=== PATIENT | male | born 1965 | race Caucasian/White ===

== ENCOUNTER 2016-09-22 10:45 | Emergency (ER) | payer OTHER ==
[2016-09-22 10:55] VITALS: RESP 18
[2016-09-22] MEDS ORDERED: methylPREDNISolone SOD SUCCI 125 MG/2 ML VIAL IV STA (11:26)
[2016-09-22] MEDS ORDERED: IPRATROPIUM-ALBUTEROL 3 ML NEB INHALATION STA (11:26)
[2016-09-22] MEDS ORDERED: KETOROLAC 30 MG/ML 1 ML VIAL IVP STA (11:28)
--- NOTE | 2016-09-22 11:50 | ED ---
SOB HPI - General Chief Complaint: Shortness of Breath Stated Complaint: left chest congestion Time Seen by Provider: 09/22/16 11:07 Source: patient Mode of arrival: ambulatory Limitations: no limitations - History of Present Illness Initial Comments: This 51-year-old white male presents with a complaint of some shortness of breath as well as some left-sided chest pain. He states that it is been present for approximately 2 months. He shortness of breath is worse with any exertion. He states that if he walks up steps he SHORT of breath. He also has had an increased cough with whitish production. He states that he will get some left-sided chest pain when he coughs or touches his left chest. It is described as a dull achy sensation. He denies any previous similar incidents. He does smoke 1 pack per day tobacco. It is been progressively worsening over the last 2 months. He denies any fevers or chills. He denies any history of asthma, COPD, or emphysema. He does not take any inhalers at home. He denies any leg pain or swelling. He denies any history of PE or DVT. No other complaints or modifying factors. - Related Data Previous Rx's Medication Instructions Recorded Albuterol Sulfate [Proair Hfa] 1 - 2 puff INHALATION Q6HR PRN #1 09/22/16 inhaler Ipratropium-Albuterol Nebulize 3 ml INHALATION Q4H PRN #50 neb 09/22/16 [Duoneb 0.5 mg-3 mg/3 ml Soln] predniSONE 20 mg PO BID #10 tab 09/22/16 Allergies Allergy/AdvReac Type Severity Reaction Status Date / Time Penicillins Allergy Unknown Verified 09/22/16 11:12 Review of Systems ROS Statement: Those systems with pertinent positive or pertinent negative responses have been documented in the HPI. ROS Other: All systems not noted in ROS Statement are negative. Past Medical History Additional Past Medical History / Comment(s): dr History of Any Multi-Drug Resistant Organisms: None Reported Additional Past Surgical History / Comment(s): esphogeal surg from drinking drano at 1 yo Past Psychological History: No Psychological Hx Reported Smoking Status: Current every day smoker Past Alcohol Use History: Daily Past Drug Use History: None Reported General Exam - General Exam Comments Initial Comments: GENERAL: The patient is well nourished and well hydrated. VITAL SIGNS: Heart rate, blood pressure, respiratory rate reviewed as recorded in nurse's notes. EYES: Pupils are round and reactive. Extraocular movements are intact. No conjunctival / lid redness or swelling. ENT: No external evidence of injury, swelling, or ecchymosis. Airway is patent. Throat is clear. NECK: Nontender. No swelling or evidence of injury. No subcutaneous emphysema. Trachea is midline. No thyroid mass. HEART: Regular rate and rhythm. Good peripheral pulses. LUNGS/CHEST: Breath sounds clear and equal bilaterally. No rales, rhonchi, or wheezes. There is some mild tenderness upon palpation of his left chest wall. ABDOMEN: Abdomen soft without tenderness. No palpable masses or organomegaly. No peritoneal signs. No abdominal wall swelling or ecchymosis. EXTREMITIES: No extremity tenderness. Normal muscle tone and function. No thoracolumbar tenderness. NEUROLOGIC: Sensation is grossly intact. Cranial nerve exam reveals face is symmetrical, tongue is midline, speech is clear. SKIN: No abrasions or ecchymosis is noted. No induration or masses noted. PSYCHIATRIC: Alert and oriented. Appropriate behavior and judgment. Limitations: no limitations Course Vital Signs 09/22/16 09/22/16 09/22/16 10:52 13:06 13:11 Temperature 98.3 F Pulse Rate 80 62 68 Respiratory 18 Rate Blood Pressure 127/68 O2 Sat by Pulse 98 Oximetry Medical Decision Making - Medical Decision Making The patient was seen and examined. All diagnostics were reviewed. An IV is established and he received some Solu-Medrol as well as a DuoNeb breathing treatment. An EKG was done which shows a normal sinus rhythm at a rate of 73. There is a incomplete right bundle-branch block with associated ST-T wave changes primarily in V1, V2, and aVL. The LA interval is 134, QRS duration is 106, and QTC intervals 420. The laboratory is unremarkable. The chest x-ray shows advanced COPD changes but no other acute processes. He states that he feels remarkably better after the DuoNeb breathing treatment. It is felt as though he would benefit from a home nebulizer as well as some steroids and albuterol. He is a reproducible chest pain that is only present with coughing. Is felt that this likely is musculoskeletal in nature. It is felt as though he does have an exacerbation of his COPD. There is no signs of infection currently. Is felt that he is stable for discharge home and leaves in no distress. - Lab Data Result diagrams: 09/22/16 12:40 09/22/16 12:40 Lab Results 09/22/16 09/22/16 09/22/16 Range/Units 12:40 12:40 12:40 WBC 5.8 (3.8-10.6) k/uL RBC 4.14 L (4.30-5.90) m/uL Hgb 14.0 (13.0-17.5) gm/dL Hct 41.1 (39.0-53.0) % MCV 99.2 (80.0-100.0) fL MCH 33.8 (25.0-35.0) pg MCHC 34.1 (31.0-37.0) g/dL RDW 13.1 (11.5-15.5) % Plt Count 165 (150-450) k/uL Neutrophils % 57 % Lymphocytes % 27 % Monocytes % 8 % Eosinophils % 4 % Basophils % 1 % Neutrophils # 3.3 (1.3-7.7) k/uL Lymphocytes # 1.6 (1.0-4.8) k/uL Monocytes # 0.5 (0-1.0) k/uL Eosinophils # 0.2 (0-0.7) k/uL Basophils # 0.0 (0-0.2) k/uL PT (9.0-12.0) sec INR (<1.1) APTT (22.0-30.0) sec D-Dimer (<0.60) mg/L FEU Sodium 140 (137-145) mmol/L Potassium 4.2 (3.5-5.1) mmol/L Chloride 106 (98-107) mmol/L Carbon Dioxide 25 (22-30) mmol/L Anion Gap 9 mmol/L BUN 13 (9-20) mg/dL Creatinine 0.95 (0.66-1.25) mg/dL Est GFR (MDRD) Af Amer >60 (>60 ml/min/1.73 sqM) Est GFR (MDRD) Non-Af >60 (>60 ml/min/1.73 sqM) Glucose 95 (74-99) mg/dL Calcium 9.8 (8.4-10.2) mg/dL Total Bilirubin 0.7 (0.2-1.3) mg/dL AST 49 (17-59) U/L ALT 40 (21-72) U/L Alkaline Phosphatase 56 (38-126) U/L Total Creatine Kinase 159 (55-170) U/L CK-MB (CK-2) 1.8 (0.0-2.4) ng/mL CK-MB (CK-2) Rel Index 1.1 Troponin I <0.012 (0.000-0.034) ng/mL Total Protein 7.3 (6.3-8.2) g/dL Albumin 4.4 (3.5-5.0) g/dL 09/22/16 Range/Units 12:40 WBC (3.8-10.6) k/uL RBC (4.30-5.90) m/uL Hgb (13.0-17.5) gm/dL Hct (39.0-53.0) % MCV (80.0-100.0) fL MCH (25.0-35.0) pg MCHC (31.0-37.0) g/dL RDW (11.5-15.5) % Plt Count (150-450) k/uL Neutrophils % % Lymphocytes % % Monocytes % % Eosinophils % % Basophils % % Neutrophils # (1.3-7.7) k/uL Lymphocytes # (1.0-4.8) k/uL Monocytes # (0-1.0) k/uL Eosinophils # (0-0.7) k/uL Basophils # (0-0.2) k/uL PT 9.5 (9.0-12.0) sec INR 0.9 (<1.1) APTT 23.3 (22.0-30.0) sec D-Dimer 0.39 (<0.60) mg/L FEU Sodium (137-145) mmol/L Potassium (3.5-5.1) mmol/L Chloride (98-107) mmol/L Carbon Dioxide (22-30) mmol/L Anion Gap mmol/L BUN (9-20) mg/dL Creatinine (0.66-1.25) mg/dL Est GFR (MDRD) Af Amer (>60 ml/min/1.73 sqM) Est GFR (MDRD) Non-Af (>60 ml/min/1.73 sqM) Glucose (74-99) mg/dL Calcium (8.4-10.2) mg/dL Total Bilirubin (0.2-1.3) mg/dL AST (17-59) U/L ALT (21-72) U/L Alkaline Phosphatase (38-126) U/L Total Creatine Kinase (55-170) U/L CK-MB (CK-2) (0.0-2.4) ng/mL CK-MB (CK-2) Rel Index Troponin I (0.000-0.034) ng/mL Total Protein (6.3-8.2) g/dL Albumin (3.5-5.0) g/dL Disposition Clinical Impression: COPD exacerbation, Musculoskeletal chest pain, Tobacco abuse Disposition: HOME SELF-CARE Condition: Good Instructions: COPD (Chronic Obstructive Pulmonary Disease) (ED), Chest Pain (ED ), How to Stop Smoking (ED) Prescriptions: Albuterol Sulfate [Proair Hfa] 1 - 2 puff INHALATION Q6HR PRN #1 inhaler PRN Reason: Shortness Of Breath Or Wheezing Ipratropium-Albuterol Nebulize [Duoneb 0.5 mg-3 mg/3 ml Soln] 3 ml INHALATION Q4H PRN #50 neb PRN Reason: cough or sob predniSONE 20 mg PO BID #10 tab Referrals: None,Stated [Primary Care Provider] - 1-2 days Margarita Grossman MD [STAFF PHYSICIAN] - 09/29/16 Time of Disposition: 14:18
[2016-09-22 13:03] LABS: Basophils % (A) 1 %; CH 34.1; CHCM 34.6; Eosinophils # (A) 0.2 k/uL (0-0.7); Eosinophils % (A) 4 %; HCT 41.1 % (39.0-53.0); HDW 2.27; Luc # (Auto) 0.18; Luc % (Auto) 3; Lymphocytes # (A) 1.6 k/uL (1.0-4.8); Lymphocytes % (A) 27 %; MCH 33.8 pg (25.0-35.0); MCHC 34.1 g/dL (31.0-37.0); MCV 99.2 fL (80.0-100.0); Mean Platelet Volume 7.5; Monocytes # (A) 0.5 k/uL (0-1.0); Monocytes % (A) 8 %; Neutrophils # (A) 3.3 k/uL (1.3-7.7); Neutrophils % (A) 57 %; RBC 4.14 m/uL (4.30-5.90); RDW 13.1 % (11.5-15.5); WBC 5.8 k/uL (3.8-10.6); WBC (Perox) 5.68
[2016-09-22 13:14] LABS: ALT 40 U/L (21-72); AST 49 U/L (17-59); Alkaline Phosphatase 56 U/L (38-126); Anion Gap 9 mmol/L; Blood Urea Nitrogen 13 mg/dL (9-20); Calcium 9.8 mg/dL (8.4-10.2); Carbon Dioxide 25 mmol/L (22-30); Chloride 106 mmol/L (98-107); Glucose 95 mg/dL (74-99); Non-African American GFR(MDRD) >60 (>60 ml/min/1.73 sqM); Potassium 4.2 mmol/L (3.5-5.1); Sodium 140 mmol/L (137-145); Total Bilirubin 0.7 mg/dL (0.2-1.3); Total Protein 7.3 g/dL (6.3-8.2)
[2016-09-22 13:16] LABS: INR 0.9 (<1.1); Partial Thromboplastin Time 23.3 sec (22.0-30.0); Prothrombin Time 9.5 sec (9.0-12.0)
[2016-09-22 13:34] LABS: Creatine Kinase 159 U/L (55-170)
[2016-09-22 13:46] LABS: Creatine Kinase MB 1.8 ng/mL (0.0-2.4); Troponin I <0.012 ng/mL (0.000-0.034)
--- NOTE | 2016-09-22 13:58 | XR ---
EXAMINATION TYPE: XR chest 2V DATE OF EXAM: 09/22/2016 COMPARISON: NONE HISTORY: Cough, congestion, fever, shortness of breath. TECHNIQUE: Frontal and lateral views of the chest are obtained. FINDINGS: Chronic emphysematous change is present. Biapical scarring is seen. There is no focal air s pace opacity, pleural effusion, or pneumothorax seen. The cardiac silhouette size is within normal l imits. The osseous structures are intact. IMPRESSION: Fairly prominent emphysematous change without suspicious acute pulmonary process.
[2016-09-22 14:54] VITALS: BP 126/77; PULSE 68; TEMP 97.9
== END 2016-09-22 14:53 | disposition home or self-care (01) ==
LOC: EC 10:45
DX: J44.1 Chronic obstructive pulmonary disease with (acute) exacerbation (principal); I45.10 Unspecified right bundle-branch block; F17.200 Nicotine dependence, unspecified, uncomplicated; Z88.0 Allergy status to penicillin
CPT/HCPCS: 36415; 94640; 93005; 85379; 80053; 82550; 82553; 84484; 85025; 85610; 85730; 71020; 99285; 96374; 96375; J2930; J1885

== ENCOUNTER 2020-04-20 16:36 | Emergency (ER) | payer OTHER ==
[2020-04-20 16:44] VITALS: RESP 18
[2020-04-20 17:43] LABS: Basophils # (A) 0.1 k/uL (0-0.2); Basophils % (A) 1 %; Eosinophils # (A) 0.2 k/uL (0-0.7); Eosinophils % (A) 4 %; HGB 15.2 gm/dL (13.0-17.5); Lymphocytes % (A) 34 %; MCH 34.1 pg (25.0-35.0); MCHC 35.4 g/dL (31.0-37.0); MCV 96.5 fL (80.0-100.0); Mean Platelet Volume 7.4; Monocytes # (A) 0.4 k/uL (0-1.0); Monocytes % (A) 7 %; Neutrophils % (A) 51 %; Platelet Count 216 k/uL (150-450); RBC 4.46 m/uL (4.30-5.90); RDW 11.7 % (11.5-15.5); WBC 5.8 k/uL (3.8-10.6)
[2020-04-20 17:54] LABS: ALT 39 U/L (4-49); AST 55 U/L (17-59); African American GFR (CKD) >90 (>60 ml/min/1.73 sqM); Albumin 3.5 g/dL (3.5-5.0); Alkaline Phosphatase 93 U/L (38-126); Anion Gap 4 mmol/L; Blood Urea Nitrogen 12 mg/dL (9-20); Calcium 8.6 mg/dL (8.4-10.2); Carbon Dioxide 24 mmol/L (22-30); Chloride 108 mmol/L (98-107); Glucose 103 mg/dL (74-99); Non-African American GFR(CKD) >90 (>60 ml/min/1.73 sqM); Potassium 4.2 mmol/L (3.5-5.1); Sodium 136 mmol/L (137-145); Total Bilirubin 0.5 mg/dL (0.2-1.3); Total Protein 6.5 g/dL (6.3-8.2)
[2020-04-20 18:01] LABS: Appearance,Urine Clear (Clear); Bilirubin,Urine Negative (Negative); Blood,Urine Negative (Negative); Color,Urine Yellow; Glucose,Urine (UA) Negative (Negative); Ketones,Urine Negative (Negative); Leukocyte Esterase,Urine Negative (Negative); Nitrite,Urine Negative (Negative); Protein,Urine Negative (Negative); Specific Gravity,Urine 1.013 (1.001-1.035); Urobilinogen,Urine <2.0 mg/dL (<2.0)
[2020-04-20 18:08] VITALS: TEMP 98.5
--- NOTE | 2020-04-20 18:22 | ED ---
Abdominal Pain HPI - General Chief Complaint: Abdominal Pain Stated Complaint: Lightheaded Time Seen by Provider: 04/20/20 16:50 Source: patient Mode of arrival: wheelchair Limitations: no limitations - History of Present Illness Initial Comments: Patient is a 55-year-old male, with history of alcohol abuse, presenting to the emergency Department with complaints of burning with defecation for the past 3 days. Patient states he is also having some blood in his stool as well. Patient denies any abdominal pain, no nausea or vomiting, no fever or chills. He denies any chest pain or shortness of breath. He states the burning started about 3 days ago and happens with every bowel movement. He states he normally has loose stools and this is making the burning worse. He denies any rectal bleeding in between bowel movements. He has had a colonoscopy approximately 15 years ago which showed polyps, no other abnormalities. He has no further compl aints at this time. Upon arrival to the ER, his vital signs are stable. - Related Data Previous Rx's Medication Instructions Recorded Hydrocortisone Pr Cream 1 applic RECTAL TID PRN #1 tube 04/20/20 [Proctosol-Hc 2.5%] Allergies Allergy/AdvReac Type Severity Reaction Status Date / Time Penicillins Allergy Unknown Verified 04/20/20 18:22 Childhood Review of Systems ROS Statement: Those systems with pertinent positive or pertinent negative responses have been documented in the HPI. ROS Other: All systems not noted in ROS Statement are negative. Past Medical History Additional Past Medical History / Comment(s): dr History of Any Multi-Drug Resistant Organisms: None Reported Additional Past Surgical History / Comment(s): esphogeal surg from drinking drano at 1 yo Past Psychological History: No Psychological Hx Reported Smoking Status: Current every day smoker Past Alcohol Use History: Daily Past Drug Use History: None Reported General Exam - General Exam Comments Initial Comments: GENERAL: Patient is well-developed and well-nourished. Patient is nontoxic and in no acute distress. HEAD: Atraumatic, normocephalic. EYES: Pupils equal round and reactive to light, extraocular movements intact, sclera anicteric, conjunctiva are normal. Eyelids were unremarkable. ENT: TMs normal, nares patent, oropharynx clear without exudates. Moist mucous membranes. NECK: Normal range of motion, supple without lymphadenopathy or JVD. LUNGS: Unlabored respirations. Breath sounds clear to auscultation bilaterally and equal. No wheezes rales or rhonchi. HEART: Regular rate and rhythm without murmurs, rubs or gallops. ABDOMEN: Soft, nontender, normoactive bowel sounds. No guarding, no rebound. No masses appreciated. : Deferred MUSCULOSKELETAL: Normal extremities with adequate strength and normal range of motion, no pitting or edema. No clubbing or cyanosis. NEUROLOGICAL: Patient is alert and oriented x 3. Motor and sensory are also intact. Cranial nerves II through XII grossly intact. Symmetrical smile. Normal speech, normal gait. PSYCH: Normal mood, normal affect. SKIN: Warm, Dry, normal turgor, no rashes or lesions noted. Limitations: no limitations Rectal exam: Present: normal rectal tone, heme (+) stool, hemorrhoids (External hemorrhoids present), normal prostate. Absent: fecal impaction, mass Course Vital Signs 04/20/20 04/20/20 16:42 18:04 Temperature 98.0 F 98.5 F Pulse Rate 83 78 Respiratory 18 18 Rate Blood Pressure 157/79 123/87 O2 Sat by Pulse 99 99 Oximetry Medical Decision Making - Medical Decision Making Patient is a 55-year-old male presenting with burning with defecation for the past 3 days. She also had some blood mixed in with stool. His vitals are stable, is no abdominal pain no nausea or vomiting. On rectal exam he does have external hemorrhoids present, heme occult is positive. Patient's lab work is unremarkable, hemoglobin is stable. Patient is resting complaining ER. Discussed the patient is a most likely hemorrhoids that are contributing to his discomfort. I will give him a prescription for steroid cream to use also recommend MiraLAX and Imodium for his symptoms. He can also try rich mahad pads for discomfort as well. He needs to also follow-up with his doctor for a colonoscopy. He is in agreement and care and he is stable for discharge. Case discussed with Dr. Cramer. - Lab Data Result diagrams: 04/20/20 17:35 04/20/20 17:35 Lab Results 04/20/20 04/20/20 04/20/20 Range/Units 17:35 17:35 17:35 WBC 5.8 (3.8-10.6) k/uL RBC 4.46 (4.30-5.90) m/uL Hgb 15.2 (13.0-17.5) gm/dL Hct 43.0 (39.0-53.0) % MCV 96.5 (80.0-100.0) fL MCH 34.1 (25.0-35.0) pg MCHC 35.4 (31.0-37.0) g/dL RDW 11.7 (11.5-15.5) % Plt Count 216 (150-450) k/uL MPV 7.4 Neutrophils % 51 % Lymphocytes % 34 % Monocytes % 7 % Eosinophils % 4 % Basophils % 1 % Neutrophils # 3.0 (1.3-7.7) k/uL Lymphocytes # 2.0 (1.0-4.8) k/uL Monocytes # 0.4 (0-1.0) k/uL Eosinophils # 0.2 (0-0.7) k/uL Basophils # 0.1 (0-0.2) k/uL Sodium 136 L (137-145) mmol/L Potassium 4.2 (3.5-5.1) mmol/L Chloride 108 H (98-107) mmol/L Carbon Dioxide 24 (22-30) mmol/L Anion Gap 4 mmol/L BUN 12 (9-20) mg/dL Creatinine 0.53 L (0.66-1.25) mg/dL Est GFR (CKD-EPI)AfAm >90 (>60 ml/min/1.73 sqM) Est GFR (CKD-EPI)NonAf >90 (>60 ml/min/1.73 sqM) Glucose 103 H (74-99) mg/dL Calcium 8.6 (8.4-10.2) mg/dL Total Bilirubin 0.5 (0.2-1.3) mg/dL AST 55 (17-59) U/L ALT 39 (4-49) U/L Alkaline Phosphatase 93 (38-126) U/L Total Protein 6.5 (6.3-8.2) g/dL Albumin 3.5 (3.5-5.0) g/dL Urine Color Urine Appearance (Clear) Urine pH (5.0-8.0) Ur Specific [place] (1.001-1.035) Urine Protein (Negative) Urine Glucose (UA) (Negative) Urine Ketones (Negative) Urine Blood (Negative) Urine Nitrite (Negative) Urine Bilirubin (Negative) Urine Urobilinogen (<2.0) mg/dL Ur Leukocyte Esterase (Negative) Stool Occult Blood Positive (Negative) 04/20/20 Range/Units 17:44 WBC (3.8-10.6) k/uL RBC (4.30-5.90) m/uL Hgb (13.0-17.5) gm/dL Hct (39.0-53.0) % MCV (80.0-100.0) fL MCH (25.0-35.0) pg MCHC (31.0-37.0) g/dL RDW (11.5-15.5) % Plt Count (150-450) k/uL MPV Neutrophils % % Lymphocytes % % Monocytes % % Eosinophils % % Basophils % % Neutrophils # (1.3-7.7) k/uL Lymphocytes # (1.0-4.8) k/uL Monocytes # (0-1.0) k/uL Eosinophils # (0-0.7) k/uL Basophils # (0-0.2) k/uL Sodium (137-145) mmol/L Potassium (3.5-5.1) mmol/L Chloride (98-107) mmol/L Carbon Dioxide (22-30) mmol/L Anion Gap mmol/L BUN (9-20) mg/dL Creatinine (0.66-1.25) mg/dL Est GFR (CKD-EPI)AfAm (>60 ml/min/1.73 sqM) Est GFR (CKD-EPI)NonAf (>60 ml/min/1.73 sqM) Glucose (74-99) mg/dL Calcium (8.4-10.2) mg/dL Total Bilirubin (0.2-1.3) mg/dL AST (17-59) U/L ALT (4-49) U/L Alkaline Phosphatase (38-126) U/L Total Protein (6.3-8.2) g/dL Albumin (3.5-5.0) g/dL Urine Color Yellow Urine Appearance Clear (Clear) Urine pH 5.0 (5.0-8.0) Ur Specific [place] 1.013 (1.001-1.035) Urine Protein Negative (Negative) Urine Glucose (UA) Negative (Negative) Urine Ketones Negative (Negative) Urine Blood Negative (Negative) Urine Nitrite Negative (Negative) Urine Bilirubin Negative (Negative) Urine Urobilinogen <2.0 (<2.0) mg/dL Ur Leukocyte Esterase Negative (Negative) Stool Occult Blood (Negative) Disposition Clinical Impression: Rectal pain, Hemorrhoids, external Disposition: HOME SELF-CARE Condition: Stable Instructions (If sedation given, give patient instructions): Hemorrhoids (ED) Additional Instructions: Please return to the Emergency Department if symptoms worsen or any other concerns. Use steroid cream as prescribed. Keep area clean and dry. May take Imodium for worsening diarrhea as well as MiraLAX for a stool softener. Trial of witch mahad pads as well for comfort. Follow-up with your doctor to order a colonoscopy. Prescriptions: Hydrocortisone Pr Cream [Proctosol-Hc 2.5%] 1 applic RECTAL TID PRN #1 tube PRN Reason: Hemorrhoids Is patient prescribed a controlled substance at d/c from ED?: No Referrals: None,Stated [Primary Care Provider] - 1-2 days
[2020-04-20 18:32] VITALS: BP 135/88; PULSE 73
== END 2020-04-20 18:38 | disposition home or self-care (01) ==
LOC: EC 16:36
DX: K64.4 Residual hemorrhoidal skin tags (principal); F17.200 Nicotine dependence, unspecified, uncomplicated; Z88.0 Allergy status to penicillin
CPT/HCPCS: 36415; 80053; 81003; 82272; 85025; 99284

== ENCOUNTER 2020-09-21 11:09 | Observation (INO) | payer OTHER ==
[2020-09-21 12:06] LABS: Basophils % (A) 1 %; Eosinophils # (A) 0.3 k/uL (0-0.7); Eosinophils % (A) 6 %; HCT 42.8 % (39.0-53.0); HGB 14.3 gm/dL (13.0-17.5); Lymphocytes # (A) 2.1 k/uL (1.0-4.8); Lymphocytes % (A) 45 %; MCH 31.9 pg (25.0-35.0); MCHC 33.5 g/dL (31.0-37.0); MCV 95.3 fL (80.0-100.0); Mean Platelet Volume 7.3; Monocytes # (A) 0.3 k/uL (0-1.0); Monocytes % (A) 6 %; Neutrophils # (A) 1.9 k/uL (1.3-7.7); Neutrophils % (A) 40 %; Platelet Count 179 k/uL (150-450); RBC 4.49 m/uL (4.30-5.90); RDW 12.8 % (11.5-15.5); WBC 4.7 k/uL (3.8-10.6)
--- NOTE | 2020-09-21 12:12 | ED ---
General Adult HPI - General Chief complaint: Recheck/Abnormal Lab/Rx Stated complaint: trouble swallowing Time Seen by Provider: 09/21/20 11:25 Source: patient Mode of arrival: ambulatory Limitations: no limitations - History of Present Illness Initial comments: 55-year-old male presents to the emergency room for a chief complaint of unable to swallow. Patient reports that he has had issues with this for over a year now. He reports he had injury to the esophagus and he was 1 years old after drinking Drano and needed a procedure to help dilate his esophagus. Patient reports that this is to the point where he now will eat food and then sometimes it will not go down for 3-4 hours. States he is having an episode like this right now he cannot get it to go down. Patient reports even swallowing saliva is difficult with this episode. Patient has no other complaints at this time including shortness of breath, chest pain, abdominal pain, nausea or vomiting, headache, or visual changes. - Related Data Previous Rx's Medication Instructions Recorded Hydrocortisone Pr Cream 1 applic RECTAL TID PRN #1 tube 04/20/20 [Proctosol-Hc 2.5%] Allergies Allergy/AdvReac Type Severity Reaction Status Date / Time Penicillins Allergy Unknown Verified 09/21/20 11:23 Childhood Review of Systems ROS Statement: Those systems with pertinent positive or pertinent negative responses have been documented in the HPI. ROS Other: All systems not noted in ROS Statement are negative. Past Medical History Past Medical History: No Reported History Additional Past Medical History / Comment(s): dr History of Any Multi-Drug Resistant Organisms: None Reported Additional Past Surgical History / Comment(s): esphogeal surg from drinking drano at 1 yo Past Psychological History: No Psychological Hx Reported Smoking Status: Current every day smoker Past Alcohol Use History: Daily Past Drug Use History: None Reported General Exam Limitations: no limitations General appearance: alert, in no apparent distress Head exam: Present: atraumatic, normocephalic, normal inspection Eye exam: Present: normal appearance, PERRL, EOMI. Absent: scleral icterus, conjunctival injection, periorbital swelling ENT exam: Present: normal exam Neck exam: Present: normal inspection, full ROM. Absent: tenderness, meningismus, lymphadenopathy Respiratory exam: Present: normal lung sounds bilaterally. Absent: respiratory distress, wheezes, rales, rhonchi, stridor Cardiovascular Exam: Present: regular rate, normal rhythm, normal heart sounds. Absent: systolic murmur, diastolic murmur, rubs, gallop, clicks GI/Abdominal exam: Present: soft Course Vital Signs 09/21/20 09/21/20 11:20 11:40 Temperature 97.7 F Pulse Rate 83 70 Respiratory 18 18 Rate Blood Pressure 147/80 128/83 O2 Sat by Pulse 95 95 Oximetry Medical Decision Making - Medical Decision Making patient unable to drink pop in the emergency room. Feels he has a food bolus. Feels that this is her Sunday with vegetables and rice that he ate. States it generally will pass after 3-4 hours but he is very uncomfortable this time and states that swallowing saliva makes him feel like he is going to vomit. I did speak with Dr. Rios who is agreeable to observing patient with GI consult as he will likely need endoscopy and possible dilation - Lab Data Result diagrams: 09/21/20 11:52 Lab Results 09/21/20 Range/Units 11:52 WBC 4.7 (3.8-10.6) k/uL RBC 4.49 (4.30-5.90) m/uL Hgb 14.3 (13.0-17.5) gm/dL Hct 42.8 (39.0-53.0) % MCV 95.3 (80.0-100.0) fL MCH 31.9 (25.0-35.0) pg MCHC 33.5 (31.0-37.0) g/dL RDW 12.8 (11.5-15.5) % Plt Count 179 (150-450) k/uL MPV 7.3 Neutrophils % 40 % Lymphocytes % 45 % Monocytes % 6 % Eosinophils % 6 % Basophils % 1 % Neutrophils # 1.9 (1.3-7.7) k/uL Lymphocytes # 2.1 (1.0-4.8) k/uL Monocytes # 0.3 (0-1.0) k/uL Eosinophils # 0.3 (0-0.7) k/uL Basophils # 0.0 (0-0.2) k/uL Disposition Clinical Impression: Dysphagia, Food impaction of esophagus Disposition: ADMITTED IP TO THIS HOSP Is patient prescribed a controlled substance at d/c from ED?: No Referrals: None,Stated [Primary Care Provider] - 1-2 days Time of Disposition: 12:12
[2020-09-21] MEDS ORDERED: NALOXONE 0.4 MG/ML 1 ML VIAL IV PRN (12:13)
[2020-09-21] MEDS ORDERED: ONDANSETRON 4 MG/2 ML VIAL IVP PRN (12:13)
[2020-09-21 12:15] LABS: ALT 25 U/L (4-49); AST 52 U/L (17-59); African American GFR (CKD) >90 (>60 ml/min/1.73 sqM); Albumin 4.5 g/dL (3.5-5.0); Alkaline Phosphatase 45 U/L (38-126); Anion Gap 11 mmol/L; Blood Urea Nitrogen 7 mg/dL (9-20); Carbon Dioxide 24 mmol/L (22-30); Chloride 104 mmol/L (98-107); Glucose 93 mg/dL (74-99); Non-African American GFR(CKD) >90 (>60 ml/min/1.73 sqM); Potassium 3.9 mmol/L (3.5-5.1); Sodium 139 mmol/L (137-145); Total Bilirubin 0.7 mg/dL (0.2-1.3); Total Protein 6.9 g/dL (6.3-8.2)
[2020-09-21] MEDS: SODIUM CHLORIDE 0.9% 1,000 ML IV SCH (13:00)
--- NOTE | 2020-09-21 14:08 | FL ---
EXAMINATION TYPE: FL barium swallow DATE OF EXAM: 09/21/2020 CLINICAL INDICATION: 55-year-old male esophageal stricture. 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 Episode of balloon dilatation for similar symptom s 15 years ago. Patient with trouble eating due to sensation of food getting stuck in the lower chest . COMPARISON: None Total Fluoroscopy Time: 3 minutes 3 seconds. Total images: 60. FINDINGS: The swallowing mechanism is normal and hypopharyngeal anatomy is preserved. Postsurgical change of colonic interposition with haustral folds noted. Mottled debris within suggest a retained ingested material. There is a moderate-sized hiatal hernia and a moderate to severe stric ture along the proximal gastric body. IMPRESSION: 1. 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 2. Mottled ingested material retained throughout the reconstructed esophagus. 3. Moderate-sized hiatal hernia. 4. Moderate to severe stricture along the proximal gastric body could be due to the previous caustic ingestion or underlying neoplasm. Recommend direct visualization.
--- NOTE | 2020-09-21 14:10 | P.CONS ---
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 The patient reports that he lunch today and subsequently had difficulty swallowing his food. He reports that these similar symptoms have been occurring over the past past few years, approximately every 3-4 days. He reports he has difficulty swallowing that eventually the food feels as if it passed and he is able to swallow again. On presentation to the hospital he had been having difficulty tolerating his secretions and the sensation of an esophageal foreign body. Subsequently the patient has had an episode of vomiting and since that time is now able to swallow his saliva as well as liquids. He reports that initially 14 years ago he underwent serial dilations every one month due to severe stenosis at the anastomotic site. He is unsure of the surgery but believes it may be a gastric pull-through after he had a partial esophagectomy secondary to ingestion of Drano when he was 1 years old. Initially after having serial dilation 14 years ago he did well however over the past 3 years she's had frequent episodes of esophageal dysphagia. Last colonoscopy approximately 1 year ago and significant for polypectomy. He reports some weight loss and association with his symptoms. On presentation to the hospital WBC 4.7, hemoglobin 14.3, platelet counts 179,000, total bilirubin 0.7, alkaline phosphatase 45, AST 52 and ALT 25. Review of Systems REVIEW OF SYSTEMS: CONSTITUTIONAL: Denies any fevers, chills, or fatigue but has had some weight loss and association with difficulty swallowing. CARDIOVASCULAR: Denies any chest pain, palpitations high or low blood pressures RESPIRATORY: Denies any shortness of breath, hemoptysis or cough. GENITOURINARY: No dysuria or hematuria. MUSCULOSKELETAL: No weakness reported. SKIN: Denies any new rashes or lesions, jaundice or pallor. PSYCHIATRIC: Denies any depression or anxiety. NEUROLOGY: Denies headache, denies any new focal deficits. EARS/NOSE/THROAT: No recent hearing change, congestion, nasal discharge or sore throat. EYES: No pain in eyes, discharge or change in vision. GASTROINTESTINAL: As per HPI. Past Medical History Past Medical History: No Reported History Additional Past Medical History / Comment(s): dr History of Any Multi-Drug Resistant Organisms: None Reported Additional Past Surgical History / Comment(s): esphogeal surg from drinking drano at 1 yo Past Psychological History: No Psychological Hx Reported Smoking Status: Current every day smoker Past Alcohol Use History: Daily Past Drug Use History: None Reported Additional History: Family history: Reviewed with the patient noncontributory to current medical presentation. Medications and Allergies Home Medications Medication Instructions Recorded Confirmed Type No Known Home Medications 09/21/20 09/21/20 History Allergies Allergy/AdvReac Type Severity Reaction Status Date / Time Penicillins Allergy Unknown Verified 09/21/20 12:55 Childhood Physical Exam Vitals: Vital Signs Temp Pulse Resp BP Pulse Ox 09/21/20 13:02 64 18 133/86 97 09/21/20 11:40 70 18 128/83 95 09/21/20 11:20 97.7 F 83 18 147/80 95 Intake and Output 09/20/20 09/21/20 09/21/20 22:59 06:59 14:59 Other: Weight 58.967 kg On physical examination, patient appears comfortable in no apparent distress. HEAD: Normocephalic, atraumatic. EYES: No scleral icterus. No conjunctival injection. MOUTH: No lesions, tongue midline. NECK: Trachea midline, no gross abnormalities. CHEST: Clear to auscultation with no wheezing or rhonchi appreciated. HEART: Regular rate and rhythm. ABDOMEN: Soft, thin and nontender with prior right sided and midline surgical scars healed well. Bowel sounds are positive. No organomegaly. No guarding or rigidity. EXTREMITIES: No pedal edema. SKIN: No rashes, no jaundice. NEUROLOGIC: Alert and oriented x3. No focal deficits. Results CBC & Chem 7: 09/21/20 11:52 09/21/20 11:52 Labs: Abnormal Lab Results - Last 24 Hours (Table) 09/21/20 Range/Units 11:52 BUN 7 L (9-20) mg/dL Creatinine 0.61 L (0.66-1.25) mg/dL Comments: X-ray video swallow ordered/barium swallow however pending. Assessment and Plan (1) Dysphagia Narrative/Plan: 55-year-old male presenting with complaints of esophageal dysphagia. This is been going on for years proximal primary 3-4 days with difficulty tolerating his food. The food was subsequently passed or be vomited up. He presented to the hospital after eating lunch and having difficulty swallowing. Subsequently he has vomited the food and is able to tolerate liquids. 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 He last underwent medical treatment approximately 14 years ago at [facility] which time he reports having serial dilations every month due to severely narrowed esophagus/anastomotic site. Current Visit: Yes Status: Acute Code(s): R13.10 - DYSPHAGIA, UNSPECIFIED SNOMED Code(s): 58537509 (2) History of esophagectomy Current Visit: Yes Status: Acute Code(s): Z98.890 - OTHER SPECIFIED POSTPROCEDURAL STATES; Z90.49 - ACQUIRED ABSENCE OF OTHER SPECIFIED PARTS OF DIGESTIVE TRACT SNOMED Code(s): 49384526562041043 Plan: Supportive care Clear liquid diet Nothing by mouth after midnight Continue monitor CBC, BMP, LFTs Protonix 40 mg IV twice a day Plan for EGD tomorrow with all of the risks, benefits and possible complications excellent to the patient when the bulb is questions answered to his satisfaction Thank you for allowing us to participate in the care of the patient
--- NOTE | 2020-09-21 14:29 | P.HPIM ---
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 Patient started with esophageal strictures in the past and had dilation approximately 15 years ago. Patient said that for the past few days has been having worsening symptoms of dysphagia and odynophagia. He is having difficulty swallowing both liquids and solids. He said that he feels food stuck behind his breast bone. He denies any vomiting otherwise. He presented to the emergency room for further evaluation. I ordered a barium swallow study and consulted GI for further management. Patient will be placed on observation. Review of Systems Review of system: 14 points review of systems were obtained and were negative except to what were mentioned in the HPI. Past Medical History Past Medical History: No Reported History Additional Past Medical History / Comment(s): dr History of Any Multi-Drug Resistant Organisms: None Reported Additional Past Surgical History / Comment(s): esphogeal surg from drinking drano at 1 yo Past Psychological History: No Psychological Hx Reported Smoking Status: Current every day smoker Past Alcohol Use History: Daily Past Drug Use History: None Reported Medications and Allergies Home Medications Medication Instructions Recorded Confirmed Type No Known Home Medications 09/21/20 09/21/20 History Allergies Allergy/AdvReac Type Severity Reaction Status Date / Time Penicillins Allergy Unknown Verified 09/21/20 12:55 Childhood Physical Exam Vitals: Vital Signs Temp Pulse Resp BP Pulse Ox 09/21/20 13:02 64 18 133/86 97 09/21/20 11:40 70 18 128/83 95 09/21/20 11:20 97.7 F 83 18 147/80 95 Intake and Output 09/20/20 09/21/20 09/21/20 22:59 06:59 14:59 Other: Weight 58.967 kg General: The patient is awake and alert, in no distress Eye: there is normal conjunctiva bilaterally. Neck: The neck is supple, there is no JVD. Cardiovascular: Normal S1-S2, no S3-S4, no murmurs. Respiratory: Lungs clear to auscultation bilaterally Gastrointestinal: Abdomen is soft, nontender Musculoskeletal: There is no pedal edema. Neurological:. Speech is normal. Skin: Skin is warm and dry Results CBC & Chem 7: 09/21/20 11:52 09/21/20 11:52 Labs: Abnormal Lab Results - Last 24 Hours (Table) 09/21/20 Range/Units 11:52 BUN 7 L (9-20) mg/dL Creatinine 0.61 L (0.66-1.25) mg/dL Assessment and Plan Assessment: 1. Esophageal stricture moderate to severe lung the proximal gastric body, no shellie on barium swallow study. Seen and evaluated by GI. Plan for EGD tomorrow. 2. 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 Continue IV fluid hydration. Patient was allowed clear liquids and nothing by mouth after midnight. IV Protonix.
[2020-09-21] MEDS: PANTOPRAZOLE 40 MG/10 ML VIAL IVP SCH (21:53)
[2020-09-22] MEDS: SODIUM CHLORIDE 0.9% 1,000 ML IV SCH (02:32)
[2020-09-22 07:49] VITALS: TEMP 97.8
[2020-09-22] MEDS: PANTOPRAZOLE 40 MG/10 ML VIAL IVP SCH (07:49)
[2020-09-22] MEDS ORDERED: fentaNYL (PF) 50 MCG/ML 2 ML AMP ONE (13:32)
[2020-09-22] MEDS ORDERED: PROPOFOL 10 MG/ML 20 ML VIAL IV ONE (13:32)
[2020-09-22] MEDS ORDERED: MIDAZOLAM 2 MG/2 ML VIAL ONE (13:32)
[2020-09-22] MEDS ORDERED: IV FLUID CONTINUATION 1,000 ML IV ONE (13:34)
--- NOTE | 2020-09-22 14:16 | P.PCN ---
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 The patient reports that he lunch today and subsequently had difficulty swallowing his food. He reports that these similar symptoms have been occurring over the past past few years, approximately every 3-4 days. He reports he has difficulty swallowing that eventually the food feels as if it passed and he is able to swallow again. On presentation to the hospital he had been having difficulty tolerating his secretions and the sensation of an esophageal foreign body. Subsequently the patient has had an episode of vomiting and since that time is now able to swallow his saliva as well as liquids. He reports that initially 14 years ago he underwent serial dilations every one month due to severe stenosis at the anastomotic site. He is unsure of the surgery but believes it may be a gastric pull-through after he had a partial esophagectomy secondary to ingestion of Drano when he was 1 years old. Initially after having serial dilation 14 years ago he did well however over the past 3 years she's had frequent episodes of esophageal dysphagia. Last colonoscopy approximately 1 year ago and significant for polypectomy. He reports some weight loss and association with his symptoms. PROCEDURE PERFORMED: Esophagogastroduodenoscopy with [id number]-[id number] balloon dilation. PREOPERATIVE DIAGNOSIS: Esophageal dysphagia. ESTIMATED BLOOD LOSS: Minimal. IV sedation per anesthesia. PROCEDURE: After informed consent was obtained, the patient was brought into the endoscopy unit. IV sedation was administered by Anesthesia under continuous monitoring. Initially the Olympus GIF-190 video endoscope was inserted into the mouth. Esophagus intubated without any difficulty. It was gradually advanced into the midesophagus where there was evidence of prior partial esophagectomy and an anastomotic site approximately 25 cm from the incisors. The tissue appeared to be mucosal of the large bowel as the patient had previously described. The scope was advanced to the second anastomotic site where a circumferential anastomotic site ulcer and stricture was noted at approximately 10 mm in diameter it was serially dilated with a gtalqmx-hfp-taljc balloon dilator to 10 mm11 mm12 mm. The mucosa of the stomach appeared grossly normal upon careful examination with normal-appearing antrum, body, cardia and fundus. The scope was advanced to the small bowel with a normal-appearing duodenal bulb and second portion of the duodenum. The scope was then withdrawn back into the stomach and out through the anastomosis and into the medial esophagus and esophagus with no other gross abnormalities noted. The patient tolerated the procedure well. IMPRESSION: 1. Anastomotic site circumferential ulcer and stricture with serial dilation of the stricture with femgxck-yya-ofonx balloon dilator. 2. Prior partial esophagectomy. RECOMMENDATIONS: The findings of this examination were discussed with the patient in the medical team. Recommend discharge on daily Protonix therapy indefinitely and 4 weeks of 3 times a day Carafate. Follow-up in the GI clinic for further management with consideration for repeat endoscopy with further dilation in 4-6 weeks.
[2020-09-22 14:36] VITALS: BP 137/81; PULSE 59; RESP 17
--- NOTE | 2020-09-22 15:14 | P.DS ---
Providers Date of admission: 09/21/20 12:13 Expected date of discharge: 09/22/20 Attending physician: Darcy Hernandez Consults: 09/21/20 12:13 Consult Physician Routine Consulting Provider: John Joseph Consult Reason/Comments: suspect food impaction, dysphagie Do you want consulting provider notified?: Yes Primary care physician: Stated None Hospital Course: This is a 55-year-old male with past medical history who presented to the emergency room with difficulty swallowing. Patient was evaluated and placed on observation for further management of his medical problems noted below. 1. Esophageal stricture moderate to severe: noted on barium swallow study. Seen and evaluated by GI. Underwent EGD with balloon dilation. EGD also showed anastomotic circumferential ulcer and stricture 2. 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 Follow-up with GI in the office as directed in 2 weeks. Counseled extensively regarding medication compliance. Patient Condition at Discharge: Stable Plan - Discharge Summary Discharge Rx Participant: No New Discharge Prescriptions: New Sucralfate [Carafate] 1 gm PO ACHS #1200 ml Pantoprazole Sodium [Protonix] 40 mg PO DAILY #90 tablet. Discharge Medication List Pantoprazole Sodium [Protonix] 40 mg PO DAILY #90 tablet. 09/22/20 [Rx] Sucralfate [Carafate] 1 gm PO ACHS #1200 ml 09/22/20 [Rx] Follow up Appointment(s)/Referral(s): None,Stated [Primary Care Provider] - 1-2 days John Joseph MD [STAFF PHYSICIAN] - 2 Weeks Discharge Disposition: HOME SELF-CARE
== END 2020-09-22 15:56 | disposition home or self-care (01) ==
LOC: EC 11:09 → 1SOBS 12:13 → 6NMEDSUR 16:26
PROVIDERS: ADMIT Internal Medicine; ATTEND Internal Medicine
DX: K22.2 Esophageal obstruction (principal); R13.14 Dysphagia, pharyngoesophageal phase; K28.9 Gastrojejunal ulcer, unspecified as acute or chronic, without hemorrhage or perforation; K44.9 Diaphragmatic hernia without obstruction or gangrene; F17.200 Nicotine dependence, unspecified, uncomplicated; Z20.822 Contact with and (suspected) exposure to COVID-19; Z88.0 Allergy status to penicillin; Z90.49 Acquired absence of other specified parts of digestive tract; Z87.828 Personal history of other (healed) physical injury and trauma
CPT/HCPCS: 99285; 36415; 80053; 85025; 87635; 74220; 43249; G0378 ×2; J2250; J3010; J2704; C9113 ×2; C1726 ×2

== ENCOUNTER 2020-11-11 07:27 | Day surgery (SDC) | payer OTHER ==
[2020-11-09 09:48] VITALS: BMI 18.0
[~2020-11-11 07:27] MED LIST: LACTATED RINGERS 1,000 ML IV SCH
[2020-11-11 07:53] VITALS: RESP 16; TEMP 97.9
[2020-11-11] MEDS ORDERED: LIDOCAINE 1% (10MG/ML) FOR IV START INTRADERMA ONE (07:53)
[2020-11-11] MEDS ORDERED: PROPOFOL 10 MG/ML 50 ML VIAL IV ONE (08:27)
[2020-11-11] MEDS ORDERED: LIDOCAINE 1% INJ 10MG/ML (20 ML MDV) ONE (08:27)
[2020-11-11] MEDS ORDERED: KETAMINE 10 MG/ML 20 ML VIAL ONE (08:27)
--- NOTE | 2020-11-11 08:56 | P.PCN ---
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 The patient was previously seen in the hospital with similar complaints and underwent EGD with dilation on 09/22/20 at that time the patient was found to have an anastomotic site circumferential ulcer and stricture with serial dilation as well as evidence of prior partial esophagectomy. He was discharged on Protonix therapy which she was compliant with however subsequently he has run out of the medication. PROCEDURE PERFORMED: Esophagogastroduodenoscopy with xpopzsf-ygq-uanke balloon dilation. PREOPERATIVE DIAGNOSIS: Pyloric stenosis, Esophageal dysphagia. ESTIMATED BLOOD LOSS: Minimal. IV sedation per anesthesia. PROCEDURE: After informed consent was obtained, the patient was brought into the endoscopy unit. IV sedation was administered by Anesthesia under continuous monitoring. Initially the Olympus GIF-190 video endoscope was inserted into the mouth. Esophagus intubated without any difficulty. It was gradually advanced into the midesophagus where there was evidence of prior partial esophagectomy and an anastomotic site approximately 30 cm from the incisors. The tissue appeared to be mucosa of the bowel as the patient had previously described. The scope was advanced to the second anastomotic site where a circumferential anastomotic site ulcer and stricture was noted at 50 cm from the incisors and measuring approximately 10 mm in diameter it was serially dilated with a aypweoh-jgf-lklqr balloon dilator to 10 mm11 mm12 mm. The mucosa of the stomach appeared grossly normal upon careful examination with normal-appearing antrum, body, cardia and fundus. The scope was advanced to the small bowel with a normal- appearing duodenal bulb and second portion of the duodenum. The scope was then withdrawn back into the stomach and out through the anastomosis and into the medial esophagus and esophagus with no other gross abnormalities noted. The patient tolerated the procedure well. IMPRESSION: 1. Anastomotic site circumferential ulcer and stricture with serial dilation of the stricture with jpbfagr-ysc-cqmzr balloon dilator. 2. Prior partial esophagectomy. RECOMMENDATIONS: The findings of this examination were discussed with the patient and his family. Okay to resume diet. Okay to resume medications. Patient will be given a prescription for omeprazole 20 mg daily. The patient should follow-up for repeat EGD in 4-6 weeks if symptoms recur.
[2020-11-11 09:22] VITALS: BP 137/83; PULSE 75
== END 2020-11-11 09:47 | disposition home or self-care (01) ==
LOC: ORWHC2ENDO 07:27
PROVIDERS: ATTEND Internal Medicine
DX: K31.1 Adult hypertrophic pyloric stenosis (principal); R13.14 Dysphagia, pharyngoesophageal phase; Z98.890 Other specified postprocedural states; Z90.49 Acquired absence of other specified parts of digestive tract; F17.210 Nicotine dependence, cigarettes, uncomplicated; Z79.899 Other long term (current) drug therapy; Z88.0 Allergy status to penicillin
CPT/HCPCS: 43249; J2001; J2704; C1726

== ENCOUNTER 2021-04-29 11:13 | Day surgery (SDC) | payer OTHER ==
[2021-04-28 09:33] VITALS: BMI 18.9
[2021-04-29] MEDS ORDERED: LIDOCAINE 1% (10MG/ML) FOR IV START INTRADERMA PRN (11:35)
[2021-04-29] MEDS ORDERED: LACTATED RINGERS 1,000 ML IV SCH (11:35)
[2021-04-29 11:48] VITALS: TEMP 96.7
[2021-04-29] MEDS ORDERED: LIDOCAINE 1% INJ 10MG/ML (20 ML MDV) ONE (12:02)
[2021-04-29] MEDS ORDERED: PROPOFOL 10 MG/ML 20 ML VIAL IV ONE (12:02)
--- NOTE | 2021-04-29 12:28 | P.PCN ---
Date of Procedure: 04/29/21 Procedure(s) Performed: BRIEF HISTORY: Patient is a 56-year-old, pleasant, white male scheduled for an upper endoscopy with dilation of progressive dysphagia to solids for the last few months duration. 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 Subsequently he developed severe esophageal stricture requiring esophagectomy with colon transposition. Since then he is been needing periodic dilations. The last dilation was performed by Dr. Joseph in October 2020. For the last 3 months he is been having dysphagia to solids and hence scheduled for repeat EGD with dilation today.. PROCEDURE PERFORMED: Esophagogastroduodenoscopy with balloon dilation. PREOPERATIVE DIAGNOSIS: Progressive dysphagia to solids and history of esophageal stricture. IV sedation per anesthesia. PROCEDURE: After informed consent was obtained, the patient was brought into the endoscopy unit. IV sedation was administered by Anesthesia under continuous monitoring. Initially the Olympus GIF-140 video endoscope was inserted into the mouth. Esophagus intubated without any difficulty. It was gradually advanced into the proximal esophagus where there was evidence of the previous surgeries colon transposition noted. The proximal anastomosis appeared widely patent. The scope was advanced into the distal esophagus with anastomosis was located at 36 and meters from the incisors and there was some stricture identified the scope could not be advanced to the stricture. At this time proceed with balloon dilation using 10-1212 mm TTS balloon in a sequential fashion for 60 seconds. Following this I was able to advance the scope gently into stomach and duodenum and carefully examined. The bulb and the second part of the duodenum appeared normal. The scope at this time was withdrawn to the stomach, adequately insufflated with air, and upon careful examination, mucosa of the antrum, body, cardia and the fundus appeared normal. The scope was then withdrawn into the esophagus. The GE junction was located at 46 cm from the incisors. The transposed colon appeared slightly dilated. The proximal anastomosis was located at 25 cm from the incisors and appeared normal. the patient tolerated the procedure well. IMPRESSION: 1. Distal esophageal stricture at 46 cm from the incisors at the site of this anastomosis is post balloon dilation using 10-12 mm TTS balloon as described above. 2. Proximal anastomosis at 25 cm from the anal verge appears widely patent. RECOMMENDATIONS: The findings of this examination were discussed with the patient as well as his family. He was advised to be on a clear liquid diet for lunch today. Continue with Protonix 40 mg daily and he'll be seen in office in 3-4 months.
[2021-04-29 12:43] VITALS: BP 114/75; PULSE 86; RESP 18
== END 2021-04-29 12:59 | disposition home or self-care (01) ==
LOC: ORWHC2ENDO 11:13
PROVIDERS: ATTEND Internal Medicine Gastroenterology
DX: K22.2 Esophageal obstruction (principal); K21.9 Gastro-esophageal reflux disease without esophagitis; F17.200 Nicotine dependence, unspecified, uncomplicated; Z98.890 Other specified postprocedural states; Z79.899 Other long term (current) drug therapy; Z88.0 Allergy status to penicillin
CPT/HCPCS: 43249; J2001; J2704; C1726

== ENCOUNTER 2022-01-15 23:09 | Emergency (ER) | payer OTHER ==
[2022-01-15 23:42] VITALS: RESP 18
[2022-01-16] MEDS ORDERED: CLINDAMYCIN 150 MG CAP PO STA (03:49)
[2022-01-16] MEDS ORDERED: IBUPROFEN 600 MG TAB PO STA (03:49)
[2022-01-16] MEDS ORDERED: ACET/COD 300 MG/30 MG STARTER PACK 6 TAB BTL PO STA (03:52)
--- NOTE | 2022-01-16 03:58 | ED ---
General Adult HPI - General Chief complaint: Dental/Oral Stated complaint: Mouth Abscess, facial swelling Time Seen by Provider: 01/16/22 03:11 Source: patient, RN notes reviewed Mode of arrival: ambulatory Limitations: no limitations - History of Present Illness Initial comments: 57-year-old male presents to the emergency Department with complaints of dental pain. States he has had three days of discomfort to the upper teeth and developed draining from a dental abscess today. Complains of mild facial tenderness and swelling. Take Tylenol at home with minimal improvement. States he is intending to call his dentist in the morning to schedule a follow-up appointment. Denies fever, chills, headache, difficulty breathing, or difficulty swallowing. - Related Data Previous Rx's Medication Instructions Recorded Pantoprazole Sodium [Protonix] 40 mg PO DAILY #90 tablet. 09/22/20 Clindamycin [Cleocin] 450 mg PO Q8H 7 Days #63 cap 01/16/22 Ibuprofen [Motrin] 600 mg PO Q8HR PRN #30 tab 01/16/22 Allergies Allergy/AdvReac Type Severity Reaction Status Date / Time Penicillins Allergy Unknown Verified 01/15/22 23:39 Childhood Review of Systems ROS Statement: Those systems with pertinent positive or pertinent negative responses have been documented in the HPI. ROS Other: All systems not noted in ROS Statement are negative. 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 old Past Anesthesia/Blood Transfusion Reactions: No Reported Reaction Additional Past Anesthesia/Blood Transfusion Reaction / Comment(s): no blood tranfusions Past Psychological History: No Psychological Hx Reported Smoking Status: Current every day smoker, Heavy tobacco smoker Past Alcohol Use History: Daily Past Drug Use History: None Reported - Past Family History Mother Family Medical History: Cancer Additional Family Medical History / Comment(s): colon Father Family Medical History: No Reported History Additional Family Medical History / Comment(s): at 95yr General Exam Limitations: no limitations (Well-developed, well-nourished male in no acute distress but does appear moderately uncomfortable. Initial temperature 97.7, pulse 80, respirations 18, blood pressure 1 8208, pulse ox 99% on room air.) General appearance: alert, in no apparent distress ENT exam: Present: other (Tenderness upon palpation of the left side of his face extending from the maxilla for the left naris) Expanded Teeth exam: Present: dental caries, other (Apical abscess at tooth #10 is open and draining. Tenderness upon palpation along the maxillary teeth.) Neck exam: Present: normal inspection, full ROM. Absent: tenderness, meningismus, lymphadenopathy Respiratory exam: Present: normal lung sounds bilaterally. Absent: respiratory distress, wheezes, rales, rhonchi, stridor Cardiovascular Exam: Present: regular rate, normal rhythm, normal heart sounds. Absent: systolic murmur, diastolic murmur, rubs, gallop, clicks Neurological exam: Present: alert, oriented X3, CN II-XII intact Psychiatric exam: Present: normal affect, normal mood Skin exam: Present: warm, dry, intact, normal color. Absent: rash Course Vital Signs 01/15/22 01/16/22 01/16/22 23:39 03:36 04:06 Temperature 97.7 F 98.1 F 98.0 F Pulse Rate 80 81 89 Respiratory 18 Rate Blood Pressure 182/92 156/87 144/78 O2 Sat by Pulse 99 98 98 Oximetry Medical Decision Making - Medical Decision Making This is a pleasant 57-year-old male who presents to the emergency department for evaluation of dental pain and draining abscess. Upon exam, patient appears moderately uncomfortable but in no acute distress. He is afebrile. Has mild left-sided facial swelling and tenderness upon palpation. He was given Motrin for pain and a Tylenol with Codeine starter pack. Started on clindamycin due to penicillin ALLERGY. Instructed to follow up with dentist this week. Advised and return precautions. Patient verbalizes understanding and agrees with this plan. Attending: David. Disposition Clinical Impression: Dental caries, Dental abscess Disposition: HOME SELF-CARE Condition: Stable Instructions (If sedation given, give patient instructions): Dental Abscess (ED) Additional Instructions: Take antibiotic as prescribed. Alternate Tylenol and Motrin as needed for pain. You are being given one Tylenol with Codeine for more severe pain. Please follow-up with your dentist as soon as possible. Return to the emergency department with any new, worsening, or concerning symptoms. Prescriptions: Clindamycin [Cleocin] 450 mg PO Q8H 7 Days #63 cap Ibuprofen [Motrin] 600 mg PO Q8HR PRN #30 tab PRN Reason: Pain Is patient prescribed a controlled substance at d/c from ED?: No Referrals: None,Stated [Primary Care Provider] - 1-2 days Time of Disposition: 03:58
[2022-01-16 04:06] VITALS: BP 144/78; PULSE 89; TEMP 98
== END 2022-01-16 04:06 | disposition home or self-care (01) ==
LOC: EC 23:09
DX: K04.7 Periapical abscess without sinus (principal); K02.9 Dental caries, unspecified; F17.200 Nicotine dependence, unspecified, uncomplicated; K21.9 Gastro-esophageal reflux disease without esophagitis; Z88.0 Allergy status to penicillin; Z79.899 Other long term (current) drug therapy
CPT/HCPCS: 99282

== ENCOUNTER 2022-05-10 09:02 | Day surgery (SDC) | payer OTHER ==
[2022-05-05 16:21] VITALS: BMI 18.9
[2022-05-10] MEDS ORDERED: LIDOCAINE 1% (10MG/ML) FOR IV START INTRADERMA PRN (09:35)
[2022-05-10] MEDS ORDERED: ONDANSETRON 4 MG/2 ML VIAL IVP PRN (09:35)
[2022-05-10] MEDS ORDERED: LACTATED RINGERS 1,000 ML IV SCH (09:35)
[2022-05-10 09:54] VITALS: TEMP 98.3
[2022-05-10] MEDS ORDERED: PROPOFOL 10 MG/ML 20 ML VIAL IV ONE (11:40)
[2022-05-10] MEDS ORDERED: LACTATED RINGERS 1,000 ML IV ONE ×2 (11:42→12:22)
--- NOTE | 2022-05-10 11:52 | P.PCN ---
Date of Procedure: 05/10/22 Procedure(s) Performed: BRIEF HISTORY: Patient is a 57-year-old, pleasant, white male scheduled for an upper endoscopy as a part of evaluation of dysphagia and history of esophageal anastomotic stricture. 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 He had multiple EGDs with dilation in the past. PROCEDURE PERFORMED: Esophagogastroduodenoscopy with dilation. PREOPERATIVE DIAGNOSIS: Progressive dysphagia to solids and history of esophageal anastomotic stricture. IV sedation per anesthesia. PROCEDURE: After informed consent was obtained, the patient was brought into the endoscopy unit. IV sedation was administered by Anesthesia under continuous monitoring. Initially the Olympus GIF-140 video endoscope was inserted into the mouth. Esophagus intubated without any difficulty. There was evidence of prior esophageal surgery with colon transposition. The proximal anastomosis was located at 20 cm from incisors and appeared patent. The distal anastomosis was located at 49 cm from the incisors. Tight and the scope could not be advanced through the stricture. At this time I proceeded with balloon dilation with 12- 15 mm TTS balloon in a sequential fashion for 60 seconds. Following the dilation the scope was advanced through the stricture into the stomach and duodenum and carefully examined. The bulb and the second part of the duodenum appeared normal. The scope at this time was withdrawn to the stomach, adequately insufflated with air, and upon careful examination, mucosa of the antrum, body, cardia and the fundus appeared normal. The scope was then withdrawn into the esophagus. There was some oozing noted at the site of dilation in the distal anastomotic stricture. The transposed colon appeared normal. There were no erosions or ulcerations seen and the patient tolerated the procedure well. IMPRESSION: 1. Distal esophageal anastomotic stricture at 49 cm from the incisors status post balloon dilation using 12-15 mm TTS balloon as described above. 2. Proximal esophageal anastomosis appeared patent. RECOMMENDATIONS: The findings of this examination were discussed with the patient as well as his family. He will be on a clear liquid diet today. Continue Protonix 40 mg daily and follow antireflux measures. Follow up in office in 3 months..
[2022-05-10 12:19] VITALS: BP 165/85; PULSE 59; RESP 15
== END 2022-05-10 12:40 | disposition home or self-care (01) ==
LOC: ORWHC2ENDO 09:02
PROVIDERS: ATTEND Internal Medicine Gastroenterology
DX: K22.2 Esophageal obstruction (principal); F17.200 Nicotine dependence, unspecified, uncomplicated; K21.9 Gastro-esophageal reflux disease without esophagitis; Z79.899 Other long term (current) drug therapy; Z88.0 Allergy status to penicillin
CPT/HCPCS: 43249; J2704; C1726

== ENCOUNTER 2022-11-15 09:42 | Day surgery (SDC) | payer OTHER ==
[2022-11-08 14:53] VITALS: BMI 18.0
[~2022-11-15 09:42] MED LIST changes: +LIDOCAINE 1% (10MG/ML) FOR IV START INTRADERMA PRN
[2022-11-15 10:15] VITALS: TEMP 97.3
[2022-11-15] MEDS ORDERED: PROPOFOL 10 MG/ML 20 ML VIAL IV ONE (11:12)
[2022-11-15] MEDS ORDERED: LIDOCAINE 2% INJ 20 MG/ML (2 ML VIAL) ONE (11:12)
--- NOTE | 2022-11-15 11:26 | P.PCN ---
Date of Procedure: 11/15/22 Procedure(s) Performed: BRIEF HISTORY: Patient is a 57-year-old, pleasant, white male scheduled for an upper endoscopy as a part of evaluation of dysphagia related to History of esophageal stricture. 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 His last EGD with dilation was done in April of [facility]. PROCEDURE PERFORMED: Esophagogastroduodenoscopy dilation . PREOPERATIVE DIAGNOSIS: Dysphagia to solids and history of esophageal anastomotic stricture IV sedation per anesthesia. PROCEDURE: After informed consent was obtained, the patient was brought into the endoscopy unit. IV sedation was administered by Anesthesia under continuous monitoring. Initially the Olympus GIF-140 video endoscope was inserted into the mouth. Esophagus intubated without any difficulty. It was gradually advanced into the the esophagus. The proximal anastomotic stricture was located at 24 cm from the incisors that appeared widely patent. The transposed colon appeared dilated with retained food in the esophagus. I was gently able to advance the scope into the distal part of the esophagus and the anastomotic stricture was located at 40 cm. I could not advance the scope through the stricture. Hence the mucosa with balloon dilation using 12 and 13.5 mm TTS balloon in a sequential fashion for 60 seconds. Some mucosal oozing was identified. I was not able to advance the scope into the stomach. The proximal; esophagus appeared normal. The patient tolerated the procedure well. IMPRESSION: 1.Distal esophageal anastomotic stricture at 40 cm from the incisors status post balloon dilation using 12 and 13.5 mm TTS balloon as described above. 2.Scope could not be advanced into the stomach RECOMMENDATIONS: The findings of this examination were discussed with the patient as well as his family. He was advised to remain on a clear liquid diet for 2 hours. Continue with Protonix 40 mg daily. Follow up in office in 3 months..
[2022-11-15 11:52] VITALS: BP 144/80; PULSE 67; RESP 18
== END 2022-11-15 12:09 | disposition home or self-care (01) ==
LOC: ORWHC2ENDO 09:42
PROVIDERS: ATTEND Internal Medicine Gastroenterology
DX: K22.2 Esophageal obstruction (principal); Z88.0 Allergy status to penicillin; K21.9 Gastro-esophageal reflux disease without esophagitis; Z79.899 Other long term (current) drug therapy
CPT/HCPCS: 43249; J2704; J2001; C1726

== ENCOUNTER 2023-10-26 10:40 | Day surgery (SDC) | payer OTHER ==
[2023-10-23 14:04] VITALS: BMI 17.7
[~2023-10-26 10:40] MED LIST changes: -LIDOCAINE 1% (10MG/ML) FOR IV START INTRADERMA PRN
[2023-10-26] MEDS: IV FLUID CONTINUATION 1,000 ML IV ONE (10:54)
[2023-10-26 11:03] VITALS: RESP 16; TEMP 97.4
[2023-10-26] MEDS ORDERED: LIDOCAINE 1% INJ 10MG/ML (20 ML MDV) ONE (12:08)
[2023-10-26] MEDS ORDERED: PROPOFOL 10 MG/ML 20 ML VIAL IV ONE (12:08)
--- NOTE | 2023-10-26 12:26 | P.PCN ---
Date of Procedure: 10/26/23 Procedure(s) Performed: BRIEF HISTORY: Patient is a 58-year-old, pleasant, white male discomfort upper endoscopy as a part of evaluation of 5 progressive dysphagia to solids. He has history of esophageal anastomotic stricture for which he undergoes periodic dilation last 1 was in November 2022. 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 PROCEDURE PERFORMED: Esophagogastroduodenoscopy with dilation and biopsy. PREOPERATIVE DIAGNOSIS: Progressive dysphagia to solids. IV sedation per anesthesia. PROCEDURE: After informed consent was obtained, the patient was brought into the endoscopy unit. IV sedation was administered by Anesthesia under continuous monitoring. Initially the Olympus GIF-140 video endoscope was inserted into the mouth. Esophagus intubated without any difficulty. It was gradually advanced into the proximal esophagus and the proximal anastomotic stricture was located 25 cm from the incisors. The transposed colon had a 5 mm polyp at 35 cm from the incisors which was removed by cold biopsy. There was a distal anastomotic stricture at 50 cm from the incisors that was dilated using 2050 mm TTS balloon following which I was able to advance the scope into the stomach and duodenum and carefully examined. The bulb and the second part of the duodenum appeared normal. The scope at this time was withdrawn to the stomach, adequately insufflated with air, and upon careful examination, mucosa of the antrum, body, cardia and the fundus appeared normal. The scope was then withdrawn into the esophagus. Distal anastomotic stricture was located at 50 cm from the incisors and there was mild oozing noted at this area. The transverse colon appeared normal except for a 5 mm polyp at 35 cm from the incisors that was removed by cold biopsy. The proximal esophageal anastomosis was widely patent located 25 cm from the incisors. The rest of the the esophagus appeared normal. The patient tolerated the procedure well. IMPRESSION: 1. Distal esophageal anastomotic stricture at 50 cm from the incisors s/p balloon dilation using 12 to 15 mm TTS balloon as described above. 2. 5 mm mid esophageal polyp s/p cold biopsy. RECOMMENDATIONS: The findings of this examination were discussed with the patient as well as his family. He was advised to be on clear liquid diet for 2 hours. Follow-up in the office in 6 months..
[2023-10-26 12:45] VITALS: BP 129/78; PULSE 66
== END 2023-10-26 13:01 | disposition home or self-care (01) ==
LOC: ORWHC2ENDO 10:40
PROVIDERS: ATTEND Internal Medicine Gastroenterology
DX: K22.2 Esophageal obstruction (principal); D13.0 Benign neoplasm of esophagus; K21.9 Gastro-esophageal reflux disease without esophagitis; Z88.0 Allergy status to penicillin; F17.200 Nicotine dependence, unspecified, uncomplicated; Z79.899 Other long term (current) drug therapy; Z80.0 Family history of malignant neoplasm of digestive organs
CPT/HCPCS: 88305; 43239; 43249; J2001; J2704; C1726

== ENCOUNTER 2024-05-08 09:02 | Day surgery (SDC) | payer OTHER ==
[2024-05-05 15:47] VITALS: BMI 18.0
[~2024-05-08 09:02] MED LIST changes: -LACTATED RINGERS 1,000 ML IV SCH; +LIDOCAINE 1% (10MG/ML) FOR IV START INTRADERMA PRN
[2024-05-08] MEDS: IV FLUID CONTINUATION 1,000 ML IV ONE (09:25)
[2024-05-08 09:28] VITALS: TEMP 98.6
[2024-05-08] MEDS: LACTATED RINGERS 1,000 ML IV SCH (09:43)
[2024-05-08] MEDS ORDERED: PROPOFOL 10 MG/ML 20 ML VIAL IV ONE (10:48)
--- NOTE | 2024-05-08 11:00 | P.PCN ---
Date of Procedure: 05/08/24 Procedure(s) Performed: BRIEF HISTORY: Patient is a 59-year-old, pleasant, white male scheduled for an upper endoscopy with possible dilation as a part of evaluation of progressive dysphagia to solids. He has history of gastric injury to the esophagus as a child when he underwent his esophagectomy with colon transposition. Last EGD with dilation was in October 2023 with dilation of the anastomotic stricture.. PROCEDURE PERFORMED: Esophagogastroduodenoscopy with dilation. PREOPERATIVE DIAGNOSIS: Progressive dysphagia to solids for the last 6 months duration. IV sedation per anesthesia. PROCEDURE: After informed consent was obtained, the patient was brought into the endoscopy unit. IV sedation was administered by Anesthesia under continuous monitoring. Initially the Olympus GIF-140 video endoscope was inserted into the mouth. Esophagus intubated without any difficulty. It was gradually advanced into the distal esophagus with anastomotic stricture was identified at 50 cm from the anal verge. The transposed colon appeared normal. I was not able to advance the scope through the distal anastomotic stricture. At this time dilation was performed using 12 to 15 mm balloon in a sequential fashion for 30 seconds it was dilated up to 14 mm balloon. Following this I was able to advance the scope into the stomach stomach and duodenum and carefully examined. The bulb and the second part of the duodenum appeared normal. The scope at this time was withdrawn to the stomach, adequately insufflated with air, and upon careful examination, mucosa of the antrum, body, cardia and the fundus appeared normal. The scope was then withdrawn into the esophagus. The GE junction was located at 50 cm from the incisors. There are some oozing noted at the site of dilation. The transverse colon appeared normal. There were no erosions or ulcerations seen and the patient tolerated the procedure well. IMPRESSION: 1. Distal esophageal anastomotic stricture at 50 cm from the anal verge status post balloon dilation using 1213 and 40 mm TTS balloon as described above. 2. The transposed colon appeared normal. RECOMMENDATIONS: The findings of this examination were discussed with the patient as well as his family. He was advised to be on a clear liquid diet. Continue Protonix 40 mg daily. Follow-up in the office in 6 weeks..
[2024-05-08 11:19] VITALS: BP 121/78; PULSE 72; RESP 18
== END 2024-05-08 11:31 ==
LOC: ORWHC2ENDO 09:02
PROVIDERS: ATTEND Internal Medicine Gastroenterology
DX: K22.2 Esophageal obstruction (principal); K21.9 Gastro-esophageal reflux disease without esophagitis; F17.210 Nicotine dependence, cigarettes, uncomplicated; Z88.0 Allergy status to penicillin; Z79.899 Other long term (current) drug therapy
CPT/HCPCS: 43249; J2704; C1726; 43239